=== PATIENT | female | born 1945 ===

== ENCOUNTER 2017-09-22 07:08 | Outpatient (CLI) | payer MEDICARE, OTHER ==
[2017-09-22 08:42] LABS: eGFR (African) > 60; eGFR (Non-African) > 60
== END 2017-09-22 07:10 ==
LOC: LAB 07:08
PROVIDERS: ATTEND Family Medicine
DX: I10 Essential (primary) hypertension (principal)
CPT/HCPCS: 36415; 80053; 80061

== ENCOUNTER 2018-10-23 07:11 | Outpatient (CLI) | payer MEDICARE, OTHER ==
[2018-10-23 08:15] LABS: eGFR (Non-African) > 60
== END 2018-10-23 07:20 ==
LOC: LAB 07:11
PROVIDERS: ATTEND Family Medicine
DX: G60.9 Hereditary and idiopathic neuropathy, unspecified (principal); I10 Essential (primary) hypertension
CPT/HCPCS: 36415; 80053; 84439; 84443; 84481